=== PATIENT | female | born 1935 | race Caucasian/White ===

== ENCOUNTER 2017-06-23 23:13 | Inpatient (IN) | payer MEDICARE, OTHER ==
[~2017-06-23] VITALS: Ht 165.1 cm; Wt 81.8 kg
[2017-06-23] MEDS ORDERED: MORPHINE 2MG in 2ml NS syringe IM STA (23:36)
[2017-06-23] MEDS ORDERED: ketorolac trometh. 30mg/ml inj. IM ONE (23:45)
[2017-06-23] MEDS ORDERED: TRAM50TA2 PO (23:47)
[2017-06-24 02:08] LABS: BASOPHILS % (AUTO) 0.3 % (0-1); EOSINOPHILS # (AUTO) 0.1 X10'3 (0-0.9); EOSINOPHILS % (AUTO) 1.5 % (0-6); HEMATOCRIT 37.4 % (35.0-45.0); HEMOGLOBIN 13.1 g/dl (12.0-16.0); LYMPHOCYTES # (AUTO) 1.2 X10'3 (1.1-4.8); LYMPHOCYTES % (AUTO) 13.5 % (21-51); MEAN CORPUSCULAR HEMOGLOBIN 34.1 PG (27.0-31.0); MEAN CORPUSCULAR VOLUME 97.5 FL (78-98); MEAN PLATELET VOLUME 7.5 FL (7.4-10.4); MONOCYTES # (AUTO) 0.4 X10'3 (0-0.9); MONOCYTES % (AUTO) 4.1 % (2-12); NEUTROPHILS % (AUTO) 80.6 % (42-75); PLATELET COUNT 216 X10'3 (140-440); RED BLOOD COUNT 3.83 X10'6 (4.20-5.60); RED CELL DISTRIBUTION WIDTH 12.9 % (11.5-14.5); WHITE BLOOD COUNT 8.7 X10'3 (4.5-11.0)
[2017-06-24 02:20] LABS: INR 0.9 INR; PARTIAL THROMBOPLASTIN TIME 27 SECONDS (22-32); PROTHROMBIN TIME 9.6 SECONDS (9.0-12.0)
[2017-06-24] MEDS ORDERED: HYDROcodone/acetaminophen 10/325mg tab PO PRN (02:25)
[2017-06-24] MEDS ORDERED: HYDROcodone/acetaminophen 5mg/325mg tablet PO PRN (02:25)
[2017-06-24] MEDS ORDERED: mag hydrox/Alum hydrox/simeth 30ml oral suspension PO PRN (02:25)
[2017-06-24] MEDS ORDERED: acetaminophen 325mg tablet PO PRN (02:25)
[2017-06-24] MEDS ORDERED: ondansetron/PF 4mg/2ml inj IV PRN (02:25)
[2017-06-24] MEDS ORDERED: magnesium hydroxide 30ml (MOM) UD suspension PO PRN (02:25)
[2017-06-24 02:31] LABS: CREATINE KINASE 91 U/L (26-192); ETHANOL 0.182 GM/DL (0.0-0.010)
[2017-06-24] MEDS ORDERED: haloperidol lactate 5mg/ml inj IM PRN (02:35)
[2017-06-24] MEDS ORDERED: thiamine 100mg/ml 2ml inj. IV ONE (02:35)
[2017-06-24] MEDS ORDERED: dextrose 50%-water 50ml dispensing syringe IV PRN (02:35)
[2017-06-24] MEDS ORDERED: haloperidol 5mg tablet PO PRN (02:35)
[2017-06-24] MEDS: normal saline 1000ml 1,000 ML IV SCH ×2 (02:38→19:01)
[2017-06-24 04:04] LABS: ALANINE AMINOTRANSFERASE 29 U/L (12-78); ALBUMIN 3.6 G/DL (3.4-5.0); ALBUMIN/GLOBULIN RATIO 0.9 (1.1-1.5); ALKALINE PHOSPHATASE 64 IU/L (46-116); ANION GAP 18 (8-16); ASPARTATE AMINO TRANSFERASE 22 U/L (10-37); BILIRUBIN,TOTAL 0.3 MG/DL (0.1-1.0); BLOOD UREA NITROGEN 20 MG/DL (7-18); BUN/CREATININE RATIO 19.6 (6.6-38.0); CALCIUM 8.9 MG/DL (8.5-10.1); CHLORIDE 101 MMOL/L (99-107); CREATININE 1.02 MG/DL (0.40-0.90); GLUCOSE 106 MG/DL (70-104); POTASSIUM 3.5 MMOL/L (3.5-5.1); SODIUM 138 MMOL/L (135-145); TOTAL CARBON DIOXIDE 19.2 MMOL/L (24-32); TOTAL PROTEIN 7.4 G/DL (6.4-8.2); eGFR 52 ML/MIN
[2017-06-24 08:03] LABS: URINE AMPHETAMINE SCREEN NEGATIVE (Neg); URINE BARBITUATE SCREEN NEGATIVE (Neg); URINE BENZODIAZEPINES SCREEN NEGATIVE (Neg); URINE CANNABINOID SCREEN NEGATIVE (Neg); URINE COCAINE SCREEN NEGATIVE (Neg); URINE METHADONE SCREEN NEGATIVE (Neg); URINE OPIATE SCREEN NEGATIVE (Neg); URINE PHENCYCLIDINE SCREEN NEGATIVE (Neg)
[2017-06-24] MEDS ORDERED: MORPHINE 2MG in 2ml NS syringe IV PRN (08:35)
[2017-06-24] MEDS: morphine 4 MG/ML inj SYRINge IV PRN ×5 (08:47→18:38)
[2017-06-24] MEDS ORDERED: morphine 4 MG/ML inj SYRINge IV ONE (09:50)
[2017-06-24] MEDS: LORazepam 2 mg/ml vial IV PRN ×2 (15:05→19:01)
[2017-06-24 17:37] VITALS: BP 143/78
[2017-06-24 18:00] VITALS: BP 138/56
[2017-06-24] MEDS ORDERED: temazepam 15mg capsule PO PRN (21:00)
[2017-06-24 22:00] VITALS: BP 156/75
[2017-06-25] MEDS: HYDROcodone/acetaminophen 10/325mg tab PO PRN ×4 (02:48→20:44)
[2017-06-25] MEDS: morphine 4 MG/ML inj SYRINge IV PRN ×4 (05:53→23:34)
[2017-06-25 06:00] VITALS: BP 117/45
[2017-06-25 09:32] LABS: BASOPHILS % (AUTO) 0.1 % (0-1); EOSINOPHILS # (AUTO) 0.1 X10'3 (0-0.9); EOSINOPHILS % (AUTO) 2.4 % (0-6); HEMOGLOBIN 11.5 g/dl (12.0-16.0); LYMPHOCYTES # (AUTO) 1.1 X10'3 (1.1-4.8); LYMPHOCYTES % (AUTO) 20.3 % (21-51); MEAN CORPUSCULAR HEMOGLOBIN 33.8 PG (27.0-31.0); MEAN CORPUSCULAR HGB CONC 34.9 % (33.0-36.5); MEAN CORPUSCULAR VOLUME 96.8 FL (78-98); MEAN PLATELET VOLUME 7.5 FL (7.4-10.4); MONOCYTES # (AUTO) 0.4 X10'3 (0-0.9); MONOCYTES % (AUTO) 7.4 % (2-12); NEUTROPHILS # (AUTO) 3.8 X10'3 (1.8-7.7); NEUTROPHILS % (AUTO) 69.8 % (42-75); PLATELET COUNT 219 X10'3 (140-440); RED BLOOD COUNT 3.41 X10'6 (4.20-5.60); WHITE BLOOD COUNT 5.4 X10'3 (4.5-11.0)
[2017-06-25 09:42] LABS: ALBUMIN 3.1 G/DL (3.4-5.0); ANION GAP 9 (8-16); BLOOD UREA NITROGEN 16 MG/DL (7-18); BUN/CREATININE RATIO 17.2 (6.6-38.0); CALCIUM 8.4 MG/DL (8.5-10.1); CHLORIDE 102 MMOL/L (99-107); CREATININE 0.93 MG/DL (0.40-0.90); GLUCOSE 100 MG/DL (70-104); SODIUM 136 MMOL/L (135-145); TOTAL CARBON DIOXIDE 25.3 MMOL/L (24-32); eGFR 58 ML/MIN
[2017-06-25 10:00] VITALS: BP 143/71
[2017-06-25] MEDS: pantoprazole 40 MG vial IV SCH (12:29)
[2017-06-25] MEDS: enoxaparin 40mg/0.4ml syringe SUBCUT SCH (16:25)
[2017-06-25 19:00] VITALS: BP 160/74
[2017-06-25 22:00] VITALS: BP 148/64
[2017-06-26] MEDS ORDERED: DORZ10DR18 RIGHTEYE (00:11)
[2017-06-26] MEDS ORDERED: BIMA2.5D OP (00:22)
[2017-06-26] MEDS: HYDROcodone/acetaminophen 10/325mg tab PO PRN ×5 (00:31→21:50)
[2017-06-26] MEDS ORDERED: LORazepam 1 MG tablet PO PRN (02:35)
[2017-06-26] MEDS ORDERED: LORazepam 2 mg/ml vial IV PRN (02:35)
[2017-06-26] MEDS: morphine 4 MG/ML inj SYRINge IV PRN ×3 (03:55→16:58)
[2017-06-26 06:00] VITALS: BP 142/61
[2017-06-26] MEDS: pantoprazole 40 MG vial IV SCH (08:00)
[2017-06-26] MEDS: enoxaparin 40mg/0.4ml syringe SUBCUT SCH (08:00)
[2017-06-26 10:00] VITALS: BP 150/73
[2017-06-26 18:00] VITALS: BP 182/77
[2017-06-26 22:00] VITALS: BP 167/77
[2017-06-27] MEDS: HYDROcodone/acetaminophen 10/325mg tab PO PRN ×3 (05:16→13:08)
[2017-06-27 06:00] VITALS: BP 159/73
[2017-06-27] MEDS: enoxaparin 40mg/0.4ml syringe SUBCUT SCH (08:50)
[2017-06-27] MEDS: pantoprazole 40 MG vial IV SCH (08:50)
[2017-06-27 10:00] VITALS: BP 124/55
[2017-06-28] MEDS ORDERED: LORazepam 1 MG tablet PO PRN (02:35)
[2017-06-28] MEDS ORDERED: LORazepam 2 mg/ml vial IV PRN (02:35)
== END 2017-06-27 14:07 | DRG 543 ==
LOC: ER 23:14 → ED HOLD 06-24 02:24 → ORTHO 4S 06-24 17:11
PROVIDERS: ADMIT Internal Medicine; ATTEND Internal Medicine
PROC: 2W3LX1Z Immobilization of Right Lower Extremity using Splint (ICD-10-PCS; principal; 2017-06-24)
DX: M80.871A Other osteoporosis with current pathological fracture, right ankle and foot, initial encounter for fracture (principal); D62 Acute posthemorrhagic anemia; I50.9 Heart failure, unspecified; E86.0 Dehydration; M80.861A Other osteoporosis with current pathological fracture, right lower leg, initial encounter for fracture; W10.8XXA Fall (on) (from) other stairs and steps, initial encounter; F10.129 Alcohol abuse with intoxication, unspecified; Z96.651 Presence of right artificial knee joint; Z60.2 Problems related to living alone; N28.9 Disorder of kidney and ureter, unspecified; Y90.6 Blood alcohol level of 120-199 mg/100 ml; Z90.49 Acquired absence of other specified parts of digestive tract; Z90.5 Acquired absence of kidney; Z88.6 Allergy status to analgesic agent; Z85.038 Personal history of other malignant neoplasm of large intestine; Z85.528 Personal history of other malignant neoplasm of kidney; Y93.89 Activity, other specified; Y92.89 Other specified places as the place of occurrence of the external cause; Y99.8 Other external cause status
CPT/HCPCS: 36415; 71045; 73501; 73560; 73590; 73600; 80048; 80053; 80305; 80320; 82550; 83880; 84484; 85025; 85610; 85730; 87070; 93005; 96372; 97110; 97162; 97530; 99285; A6449; C9113; J1650; J1885; J2060; J2270; J2405; J3411; J7030

== ENCOUNTER 2017-07-08 05:32 | Inpatient (IN) | payer MEDICARE, OTHER ==
[~2017-07-08] VITALS: Ht 165.1 cm; Wt 81.0 kg
[~2017-07-08 05:32] MED LIST: BIMA2.5D OP; DORZ10DR18 RIGHTEYE; TRAM50TA2 PO
[2017-07-08 06:17] LABS: ALANINE AMINOTRANSFERASE 36 U/L (12-78); ALBUMIN 3.3 G/DL (3.4-5.0); ALBUMIN/GLOBULIN RATIO 0.9 (1.1-1.5); ALKALINE PHOSPHATASE 63 IU/L (46-116); ANION GAP 12 (8-16); ASPARTATE AMINO TRANSFERASE 17 U/L (10-37); BILIRUBIN,TOTAL 0.5 MG/DL (0.1-1.0); BLOOD UREA NITROGEN 13 MG/DL (7-18); BUN/CREATININE RATIO 13.4 (6.6-38.0); CALCIUM 9.4 MG/DL (8.5-10.1); CHLORIDE 105 MMOL/L (99-107); CREATININE 0.97 MG/DL (0.40-0.90); GLUCOSE 96 MG/DL (70-104); POTASSIUM 3.7 MMOL/L (3.5-5.1); SODIUM 141 MMOL/L (135-145); TOTAL CARBON DIOXIDE 24.3 MMOL/L (24-32); eGFR 55 ML/MIN
[2017-07-08 06:23] LABS: BASOPHILS % (AUTO) 0 % (0-1); EOSINOPHILS # (AUTO) 0.1 X10'3 (0-0.9); EOSINOPHILS % (AUTO) 3.6 % (0-6); HEMATOCRIT 32.1 % (35.0-45.0); HEMOGLOBIN 11.3 g/dl (12.0-16.0); LYMPHOCYTES # (AUTO) 0.9 X10'3 (1.1-4.8); LYMPHOCYTES % (AUTO) 24.1 % (21-51); MEAN CORPUSCULAR HEMOGLOBIN 33.8 PG (27.0-31.0); MEAN CORPUSCULAR HGB CONC 35.1 % (33.0-36.5); MEAN CORPUSCULAR VOLUME 96.3 FL (78-98); MEAN PLATELET VOLUME 7.3 FL (7.4-10.4); MONOCYTES # (AUTO) 0.3 X10'3 (0-0.9); MONOCYTES % (AUTO) 8.6 % (2-12); NEUTROPHILS # (AUTO) 2.4 X10'3 (1.8-7.7); NEUTROPHILS % (AUTO) 63.7 % (42-75); PLATELET COUNT 441 X10'3 (140-440); RED BLOOD COUNT 3.33 X10'6 (4.20-5.60); RED CELL DISTRIBUTION WIDTH 13.2 % (11.5-14.5); WHITE BLOOD COUNT 3.8 X10'3 (4.5-11.0)
[2017-07-08] MEDS ORDERED: thiamine 100mg tablet PO ONE (06:55)
[2017-07-08] MEDS ORDERED: folic acid 1mg tablet PO ONE (06:55)
[2017-07-08] MEDS ORDERED: acetaminophen 325mg tablet PO PRN (07:45)
[2017-07-08] MEDS ORDERED: magnesium hydroxide 30ml (MOM) UD suspension PO PRN (07:45)
[2017-07-08] MEDS ORDERED: mag hydrox/Alum hydrox/simeth 30ml oral suspension PO PRN (07:45)
[2017-07-08] MEDS ORDERED: ondansetron/PF 4mg/2ml inj IV PRN (07:45)
[2017-07-08] MEDS ORDERED: nitroGLYCERIN 0.4mg/hour patch TD ONE (07:50)
[2017-07-08] MEDS ORDERED: aspirin 81mg tab.chew PO ONE (07:50)
[2017-07-08] MEDS ORDERED: metoprolol tartrate 1mg/ml inj IV PRN (07:55)
[2017-07-08] MEDS ORDERED: aminophylline 250mg/10ml inj. IV PRN (07:55)
[2017-07-08] MEDS ORDERED: nitroGLYCERIN 0.4mg SUBLingual tab SL PRN (07:55)
[2017-07-08] MEDS ORDERED: regadenoson 0.4mg/5ml syringe IV ONE (07:55)
[2017-07-08] MEDS: aspirin 81mg tablet.DR PO SCH (08:00)
[2017-07-08] MEDS: enoxaparin 40mg/0.4ml syringe SQ SCH (08:00)
[2017-07-08] MEDS ORDERED: dorzolamide/timolol (Cosopt) ophthalmic drops 10ml bottle RIGHTEYE SCH (08:00)
[2017-07-08] MEDS: lisinopril 10 MG tablet PO SCH (09:21)
[2017-07-08] MEDS: LORazepam 1 MG tablet PO PRN ×2 (11:16→20:38)
[2017-07-08 11:44] VITALS: BP 166/66
[2017-07-08 19:00] VITALS: BP 110/55
[2017-07-08] MEDS: dorzolamide 2% ophthalmic drops 10ml RIGHTEYE SCH (20:00)
[2017-07-08] MEDS: timolol 0.5% ophthalmic solution 5ml bottle RIGHTEYE SCH (20:00)
[2017-07-08] MEDS: traMADol 50MG tablet PO PRN (20:38)
[2017-07-08] MEDS: latanoprost 0.005% 2.5ml ophthalmic drops EACHEYE SCH (20:39)
[2017-07-09] VITALS (12 sets, daily range): BP systolic 133–179; BP diastolic 60–81
[2017-07-09 05:35] LABS: BASOPHILS % (AUTO) 0.2 % (0-1); EOSINOPHILS # (AUTO) 0.1 X10'3 (0-0.9); EOSINOPHILS % (AUTO) 3.1 % (0-6); HEMATOCRIT 29.7 % (35.0-45.0); HEMOGLOBIN 10.3 g/dl (12.0-16.0); MEAN CORPUSCULAR HEMOGLOBIN 33.7 PG (27.0-31.0); MEAN CORPUSCULAR HGB CONC 34.8 % (33.0-36.5); MEAN CORPUSCULAR VOLUME 96.6 FL (78-98); MEAN PLATELET VOLUME 7.4 FL (7.4-10.4); MONOCYTES # (AUTO) 0.4 X10'3 (0-0.9); MONOCYTES % (AUTO) 9.4 % (2-12); NEUTROPHILS # (AUTO) 2.6 X10'3 (1.8-7.7); NEUTROPHILS % (AUTO) 63.3 % (42-75); PLATELET COUNT 412 X10'3 (140-440); RED BLOOD COUNT 3.07 X10'6 (4.20-5.60); RED CELL DISTRIBUTION WIDTH 12.4 % (11.5-14.5); WHITE BLOOD COUNT 4.1 X10'3 (4.5-11.0)
[2017-07-09 06:01] LABS: ALBUMIN 3.1 G/DL (3.4-5.0); ANION GAP 11 (8-16); BLOOD UREA NITROGEN 14 MG/DL (7-18); BUN/CREATININE RATIO 14.7 (6.6-38.0); CHLORIDE 106 MMOL/L (99-107); CHOL/HDL RATIO 3.8 (0.00-4.99); CHOLESTEROL 160 MG/DL (0-200); CREATININE 0.95 MG/DL (0.40-0.90); GLUCOSE 93 MG/DL (70-104); HDL CHOLESTEROL 42 MG/DL (35-60); LDL CHOLESTEROL 96 MG/DL (50-100); POTASSIUM 3.5 MMOL/L (3.5-5.1); SODIUM 143 MMOL/L (135-145); TOTAL CARBON DIOXIDE 26.1 MMOL/L (24-32); TRIGLYCERIDES 140 MG/DL (20-135); eGFR 56 ML/MIN
[2017-07-09] MEDS: enoxaparin 40mg/0.4ml syringe SQ SCH (07:20)
[2017-07-09] MEDS: aspirin 81mg tablet.DR PO SCH (07:20)
[2017-07-09] MEDS: LORazepam 1 MG tablet PO PRN ×2 (07:32→20:05)
[2017-07-09] MEDS: lisinopril 10 MG tablet PO SCH (07:32)
[2017-07-09] MEDS: timolol 0.5% ophthalmic solution 5ml bottle RIGHTEYE SCH ×2 (08:00→20:00)
[2017-07-09] MEDS: dorzolamide 2% ophthalmic drops 10ml RIGHTEYE SCH ×2 (08:00→20:00)
[2017-07-09] MEDS: traMADol 50MG tablet PO PRN ×2 (08:56→20:05)
[2017-07-09] MEDS ORDERED: aminophylline inj. 0 ML IV ONE (09:19)
[2017-07-09] MEDS ORDERED: regadenoson 0.4mg/5ml syringe IV ONE (09:19)
[2017-07-09] MEDS: metoprolol tartrate 12.5mg (1/2 tablet) PO SCH (20:05)
[2017-07-09] MEDS: latanoprost 0.005% 2.5ml ophthalmic drops EACHEYE SCH (21:00)
[2017-07-10 06:08] LABS: BASOPHILS % (AUTO) 0.3 % (0-1); EOSINOPHILS # (AUTO) 0.1 X10'3 (0-0.9); EOSINOPHILS % (AUTO) 4.1 % (0-6); HEMATOCRIT 30.8 % (35.0-45.0); HEMOGLOBIN 10.7 g/dl (12.0-16.0); LYMPHOCYTES % (AUTO) 27.1 % (21-51); MEAN CORPUSCULAR HEMOGLOBIN 33.1 PG (27.0-31.0); MEAN CORPUSCULAR HGB CONC 34.7 % (33.0-36.5); MEAN CORPUSCULAR VOLUME 95.4 FL (78-98); MEAN PLATELET VOLUME 7.2 FL (7.4-10.4); MONOCYTES # (AUTO) 0.4 X10'3 (0-0.9); MONOCYTES % (AUTO) 9.7 % (2-12); NEUTROPHILS # (AUTO) 2.1 X10'3 (1.8-7.7); NEUTROPHILS % (AUTO) 58.8 % (42-75); PLATELET COUNT 419 X10'3 (140-440); RED BLOOD COUNT 3.23 X10'6 (4.20-5.60); RED CELL DISTRIBUTION WIDTH 13.2 % (11.5-14.5); WHITE BLOOD COUNT 3.6 X10'3 (4.5-11.0)
[2017-07-10 06:17] LABS: ALBUMIN 3.1 G/DL (3.4-5.0); ANION GAP 11 (8-16); BLOOD UREA NITROGEN 11 MG/DL (7-18); BUN/CREATININE RATIO 12.1 (6.6-38.0); CHLORIDE 107 MMOL/L (99-107); CREATININE 0.91 MG/DL (0.40-0.90); GLUCOSE 88 MG/DL (70-104); POTASSIUM 3.4 MMOL/L (3.5-5.1); SODIUM 143 MMOL/L (135-145); TOTAL CARBON DIOXIDE 25.4 MMOL/L (24-32); eGFR 59 ML/MIN
[2017-07-10 06:54] VITALS: BP 181/63
[2017-07-10] MEDS: timolol 0.5% ophthalmic solution 5ml bottle RIGHTEYE SCH ×2 (08:00→19:23)
[2017-07-10] MEDS: dorzolamide 2% ophthalmic drops 10ml RIGHTEYE SCH ×2 (08:00→20:00)
[2017-07-10] MEDS: lisinopril 10 MG tablet PO SCH (08:11)
[2017-07-10] MEDS: metoprolol tartrate 12.5mg (1/2 tablet) PO SCH ×2 (08:11→19:23)
[2017-07-10] MEDS: enoxaparin 40mg/0.4ml syringe SQ SCH (08:11)
[2017-07-10] MEDS: aspirin 81mg tablet.DR PO SCH (08:11)
[2017-07-10] MEDS: furosemide 40 MG/4 ML oral solution UD cup PO SCH (08:12)
[2017-07-10 12:21] VITALS: BP 178/76
[2017-07-10] MEDS: traMADol 50MG tablet PO PRN ×2 (13:59→23:25)
[2017-07-10] MEDS ORDERED: potassium Cl 40MEQ/NS 500ml 500 ML IV PRN ×2 (14:40)
[2017-07-10] MEDS ORDERED: potassium Cl 20 mEq SR tablet PO PRN (14:40)
[2017-07-10] MEDS: morphine 4 MG/ML inj SYRINge IV PRN ×4 (17:11→23:26)
[2017-07-10 19:00] VITALS: BP 148/81
[2017-07-10] MEDS: potassium Cl 20 mEq SR tablet PO PRN ×2 (19:23→23:25)
[2017-07-10] MEDS: latanoprost 0.005% 2.5ml ophthalmic drops EACHEYE SCH (19:26)
[2017-07-10] MEDS: normal saline 1000ml 1,000 ML IV SCH (21:34)
[2017-07-10] MEDS: LORazepam 1 MG tablet PO PRN (23:25)
[2017-07-10 23:56] VITALS: BP 149/71
[2017-07-11] VITALS (11 sets, daily range): BP systolic 128–173; BP diastolic 64–87
[2017-07-11] MEDS: morphine 4 MG/ML inj SYRINge IV PRN ×5 (02:34→20:57)
[2017-07-11] MEDS: potassium Cl 20 mEq SR tablet PO PRN (04:21)
[2017-07-11 06:18] LABS: ALBUMIN 3.1 G/DL (3.4-5.0); ANION GAP 11 (8-16); BLOOD UREA NITROGEN 13 MG/DL (7-18); BUN/CREATININE RATIO 13.1 (6.6-38.0); CALCIUM 8.7 MG/DL (8.5-10.1); CHLORIDE 106 MMOL/L (99-107); CREATININE 0.99 MG/DL (0.40-0.90); GLUCOSE 89 MG/DL (70-104); MAGNESIUM 1.8 MG/DL (1.5-2.4); POTASSIUM 3.9 MMOL/L (3.5-5.1); SODIUM 141 MMOL/L (135-145); TOTAL CARBON DIOXIDE 23.8 MMOL/L (24-32); eGFR 54 ML/MIN
[2017-07-11 07:01] LABS: BASOPHILS % (AUTO) 0.3 % (0-1); EOSINOPHILS # (AUTO) 0.2 X10'3 (0-0.9); EOSINOPHILS % (AUTO) 3.6 % (0-6); HEMATOCRIT 33.2 % (35.0-45.0); HEMOGLOBIN 11.6 g/dl (12.0-16.0); LYMPHOCYTES # (AUTO) 1.4 X10'3 (1.1-4.8); LYMPHOCYTES % (AUTO) 28.2 % (21-51); MEAN CORPUSCULAR HEMOGLOBIN 33.5 PG (27.0-31.0); MEAN CORPUSCULAR VOLUME 95.9 FL (78-98); MEAN PLATELET VOLUME 7.8 FL (7.4-10.4); MONOCYTES # (AUTO) 0.4 X10'3 (0-0.9); NEUTROPHILS # (AUTO) 3.1 X10'3 (1.8-7.7); NEUTROPHILS % (AUTO) 59.9 % (42-75); PLATELET COUNT 491 X10'3 (140-440); RED BLOOD COUNT 3.46 X10'6 (4.20-5.60); RED CELL DISTRIBUTION WIDTH 12.3 % (11.5-14.5); WHITE BLOOD COUNT 5.1 X10'3 (4.5-11.0)
[2017-07-11] MEDS: aspirin 81mg tablet.DR PO SCH (07:21)
[2017-07-11] MEDS: furosemide 40 MG/4 ML oral solution UD cup PO SCH (07:22)
[2017-07-11] MEDS: metoprolol tartrate 12.5mg (1/2 tablet) PO SCH ×2 (07:22→20:56)
[2017-07-11] MEDS: lisinopril 10 MG tablet PO SCH (07:23)
[2017-07-11] MEDS: timolol 0.5% ophthalmic solution 5ml bottle RIGHTEYE SCH ×2 (07:23→20:56)
[2017-07-11] MEDS: dorzolamide 2% ophthalmic drops 10ml RIGHTEYE SCH ×2 (07:24→20:00)
[2017-07-11] MEDS: LORazepam 1 MG tablet PO PRN ×3 (07:24→22:43)
[2017-07-11] MEDS: enoxaparin 40mg/0.4ml syringe SQ SCH (07:29)
[2017-07-11] MEDS ORDERED: midazolam 2 mg/2 ml injection ONE (08:44)
[2017-07-11] MEDS ORDERED: fentaNYL/PF 50MCG/1 ML 2ML syringe ONE (08:44)
[2017-07-11] MEDS ORDERED: iohexol 350 MG/ML 50ML vial IV ONE (09:13)
[2017-07-11] MEDS ORDERED: normal saline 1000ml 1,000 ML IV SCH (10:00)
[2017-07-11] MEDS ORDERED: ondansetron/PF 4mg/2ml inj IV PRN (10:00)
[2017-07-11] MEDS ORDERED: lisinopril 10 MG tablet PO SCH (10:02)
[2017-07-11] MEDS ORDERED: OXAZEpam 15mg capsule PO PRN (10:05)
[2017-07-11] MEDS ORDERED: proCHLORperazine 10 MG/2 ml inj IV PRN (10:05)
[2017-07-11] MEDS ORDERED: nitroGLYCERIN 0.4mg SUBLingual tab SL PRN (10:05)
[2017-07-11] MEDS ORDERED: HYDROcodone/acetaminophen 5mg/325mg tablet PO PRN (10:05)
[2017-07-11] MEDS: normal saline 1000ml 1,000 ML IV SCH (11:11)
[2017-07-11] MEDS: HYDROcodone/acetaminophen 10/325mg tab PO PRN ×2 (16:46→22:43)
[2017-07-11] MEDS: latanoprost 0.005% 2.5ml ophthalmic drops EACHEYE SCH (20:57)
[2017-07-11] MEDS: traMADol 50MG tablet PO PRN (23:11)
[2017-07-12] VITALS: BP 133/60
[2017-07-12] MEDS: normal saline 1000ml 1,000 ML IV SCH (00:05)
[2017-07-12] MEDS: morphine 4 MG/ML inj SYRINge IV PRN (00:36)
[2017-07-12 06:03] LABS: BASOPHILS % (AUTO) 0.4 % (0-1); EOSINOPHILS # (AUTO) 0.2 X10'3 (0-0.9); EOSINOPHILS % (AUTO) 4.4 % (0-6); HEMATOCRIT 32.3 % (35.0-45.0); HEMOGLOBIN 11.2 g/dl (12.0-16.0); LYMPHOCYTES % (AUTO) 23.5 % (21-51); MEAN CORPUSCULAR HEMOGLOBIN 33.8 PG (27.0-31.0); MEAN CORPUSCULAR HGB CONC 34.7 % (33.0-36.5); MEAN CORPUSCULAR VOLUME 97.2 FL (78-98); MEAN PLATELET VOLUME 7.4 FL (7.4-10.4); MONOCYTES # (AUTO) 0.4 X10'3 (0-0.9); MONOCYTES % (AUTO) 9.4 % (2-12); NEUTROPHILS # (AUTO) 2.7 X10'3 (1.8-7.7); NEUTROPHILS % (AUTO) 62.3 % (42-75); PLATELET COUNT 410 X10'3 (140-440); RED BLOOD COUNT 3.33 X10'6 (4.20-5.60); RED CELL DISTRIBUTION WIDTH 12.8 % (11.5-14.5); WHITE BLOOD COUNT 4.4 X10'3 (4.5-11.0)
[2017-07-12 06:37] LABS: ANION GAP 11 (8-16); BLOOD UREA NITROGEN 12 MG/DL (7-18); CALCIUM 8.8 MG/DL (8.5-10.1); CHLORIDE 105 MMOL/L (99-107); CREATININE 0.92 MG/DL (0.40-0.90); GLUCOSE 88 MG/DL (70-104); MAGNESIUM 1.7 MG/DL (1.5-2.4); POTASSIUM 3.8 MMOL/L (3.5-5.1); SODIUM 141 MMOL/L (135-145); TOTAL CARBON DIOXIDE 25.2 MMOL/L (24-32); eGFR 58 ML/MIN
[2017-07-12] MEDS: furosemide 40 MG/4 ML oral solution UD cup PO SCH (09:15)
[2017-07-12] MEDS: aspirin 81mg tablet.DR PO SCH (09:15)
[2017-07-12] MEDS: metoprolol tartrate 12.5mg (1/2 tablet) PO SCH (09:15)
[2017-07-12] MEDS: timolol 0.5% ophthalmic solution 5ml bottle RIGHTEYE SCH (09:16)
[2017-07-12] MEDS: dorzolamide 2% ophthalmic drops 10ml RIGHTEYE SCH (09:16)
[2017-07-12] MEDS: LORazepam 1 MG tablet PO PRN (09:17)
[2017-07-12] MEDS: enoxaparin 40mg/0.4ml syringe SQ SCH (09:20)
[2017-07-12 09:25] VITALS: BP 139/65
[2017-07-12 11:31] VITALS: BP 140/98
[2017-07-12] MEDS: HYDROcodone/acetaminophen 10/325mg tab PO PRN (12:20)
== END 2017-07-12 14:00 | DRG 286 ==
LOC: ER 05:33 → ED HOLD 07:44 → MED 3N 09:23
PROVIDERS: ADMIT Hospitalist; ATTEND Family Medicine
PROC: 4A023N7 Measurement of Cardiac Sampling and Pressure, Left Heart, Percutaneous Approach (ICD-10-PCS; principal; 2017-07-11)
PROC: B2111ZZ Fluoroscopy of Multiple Coronary Arteries using Low Osmolar Contrast (ICD-10-PCS; 2017-07-11)
PROC: B2151ZZ Fluoroscopy of Left Heart using Low Osmolar Contrast (ICD-10-PCS; 2017-07-11)
PROC: B3101ZZ Fluoroscopy of Thoracic Aorta using Low Osmolar Contrast (ICD-10-PCS; 2017-07-11)
PROC: 4A02XM4 Measurement of Cardiac Total Activity, External Approach (ICD-10-PCS; 2017-07-12)
PROC: 3E073KZ Introduction of Other Diagnostic Substance into Coronary Artery, Percutaneous Approach (ICD-10-PCS; 2017-07-12)
DX: R07.89 Other chest pain (principal); I50.31 Acute diastolic (congestive) heart failure; I35.1 Nonrheumatic aortic (valve) insufficiency; I11.0 Hypertensive heart disease with heart failure; G89.29 Other chronic pain; M81.0 Age-related osteoporosis without current pathological fracture; Z60.2 Problems related to living alone; Z90.5 Acquired absence of kidney; Z90.49 Acquired absence of other specified parts of digestive tract; S82.831D Other fracture of upper and lower end of right fibula, subsequent encounter for closed fracture with routine healing; Z88.5 Allergy status to narcotic agent; Z79.899 Other long term (current) drug therapy; Z85.528 Personal history of other malignant neoplasm of kidney; Z85.038 Personal history of other malignant neoplasm of large intestine; Z82.49 Family history of ischemic heart disease and other diseases of the circulatory system
CPT/HCPCS: 36415; 70450; 71045; 78452; 80048; 80053; 80061; 83735; 83880; 84484; 85025; 87070; 93005; 93017; 93306; 93458; 93567; 97116; 97161; 97535; 99152; 99153; 99285; A4620; A6257; A6449; A9500; C1760; C1769; J0280; J1644; J1650; J2001; J2250; J2270; J2785; J3010; J7030; Q9967

== ENCOUNTER 2017-07-11 08:00 | Outpatient (CLI) | payer MEDICARE, OTHER ==
[~2017-07-11 08:00] MED LIST changes: +K and/or MAG REPLACEMENT MC SCH; +dorzolamide 2% ophthalmic drops 10ml RIGHTEYE SCH; +non-formulary drug (Bimatoprost (Lumigan) 2.5 ML) OP SCH; +potassium Cl 20 mEq SR tablet PO PRN; +potassium Cl 40MEQ/NS 500ml 500 ML IV PRN; +timolol 0.5% ophthalmic solution 5ml bottle RIGHTEYE SCH; +traMADol 50MG tablet PO PRN
[2017-07-11] MEDS ORDERED: iohexol 350 MG/ML 50ML vial IV ONE (08:19)
[2017-07-11] MEDS ORDERED: iohexol 350MG/ML 100ml bottle IV ONE (08:19)
[2017-07-11] MEDS ORDERED: LIDOcaine 1%/PF (10mg/ml) 5ml vial ONE (08:19)
== END 2017-07-11 11:10 | disposition home or self-care (01) ==
LOC: ORTHO 08:00
PROVIDERS: ATTEND Nurse Practitioner Family
DX: I25.10 Atherosclerotic heart disease of native coronary artery without angina pectoris (principal)
CPT/HCPCS: 93458; 93567; A6257; C1760; C1769; J1644; J2001; Q9967; 99152; 99153; A4620

== ENCOUNTER 2017-07-27 11:08 | Outpatient (CLI) | payer MEDICARE, OTHER ==
[~2017-07-27 11:08] MED LIST changes: -K and/or MAG REPLACEMENT MC SCH; -TRAM50TA2 PO; -dorzolamide 2% ophthalmic drops 10ml RIGHTEYE SCH; -non-formulary drug (Bimatoprost (Lumigan) 2.5 ML) OP SCH; -potassium Cl 20 mEq SR tablet PO PRN; -potassium Cl 40MEQ/NS 500ml 500 ML IV PRN; -timolol 0.5% ophthalmic solution 5ml bottle RIGHTEYE SCH; -traMADol 50MG tablet PO PRN
[2017-07-27 11:10] VITALS: BP 116/51
== END 2017-07-27 12:18 ==
LOC: ORTHO 11:08
PROVIDERS: ATTEND Nurse Practitioner Family
DX: S82.841A Displaced bimalleolar fracture of right lower leg, initial encounter for closed fracture (principal); S82.831A Other fracture of upper and lower end of right fibula, initial encounter for closed fracture; G62.9 Polyneuropathy, unspecified; M81.0 Age-related osteoporosis without current pathological fracture; Z98.890 Other specified postprocedural states; Z60.2 Problems related to living alone; Z88.5 Allergy status to narcotic agent; Z79.82 Long term (current) use of aspirin; W19.XXXA Unspecified fall, initial encounter; Y93.89 Activity, other specified; Y92.89 Other specified places as the place of occurrence of the external cause; Y99.8 Other external cause status
CPT/HCPCS: 29515; 73590; 99213

== ENCOUNTER 2017-08-17 11:23 | Outpatient (CLI) | payer MEDICARE, OTHER | END 2017-08-17 12:23 | LOC: ORTHO 11:23 | PROVIDERS: ATTEND Nurse Practitioner Family | DX: S82.841G Displaced bimalleolar fracture of right lower leg, subsequent encounter for closed fracture with delayed healing (principal); S82.44 Spiral fracture of shaft of fibula; G62.9 Polyneuropathy, unspecified; M81.0 Age-related osteoporosis without current pathological fracture; Z88.5 Allergy status to narcotic agent; Z60.2 Problems related to living alone; W19.XXXD Unspecified fall, subsequent encounter | CPT/HCPCS: 73560; 73590; 73610; 99213 ==

== ENCOUNTER 2017-09-14 11:32 | Outpatient (CLI) | payer MEDICARE, OTHER | END 2017-09-14 12:02 | disposition home or self-care (01) | LOC: ORTHO 11:32 | PROVIDERS: ATTEND Nurse Practitioner Family | DX: S82.831D Other fracture of upper and lower end of right fibula, subsequent encounter for closed fracture with routine healing (principal); S82.841D Displaced bimalleolar fracture of right lower leg, subsequent encounter for closed fracture with routine healing; I10 Essential (primary) hypertension; F10.10 Alcohol abuse, uncomplicated; X58.XXXD Exposure to other specified factors, subsequent encounter | CPT/HCPCS: 73560; 73610; 99213 ==

== ENCOUNTER 2017-09-22 15:27 | Inpatient (IN) | payer MEDICARE, OTHER ==
[~2017-09-22] VITALS: Ht 167.6 cm; Wt 81.8 kg
[2017-09-22] MEDS ORDERED: ondansetron/PF 4mg/2ml inj IV ONE ×3 (16:05→19:05)
[2017-09-22] MEDS ORDERED: morphine 4 MG/ML inj SYRINge IV ONE ×2 (16:05→19:05)
[2017-09-22] MEDS ORDERED: normal saline 1000ML IV soln IVB ONE (16:05)
[2017-09-22 16:40] LABS: BASOPHILS % (AUTO) 0.4 % (0-1); EOSINOPHILS % (AUTO) 0 % (0-6); HEMATOCRIT 37.7 % (35.0-45.0); LYMPHOCYTES # (AUTO) 1.1 X10'3 (1.1-4.8); LYMPHOCYTES % (AUTO) 16.9 % (21-51); MEAN CORPUSCULAR HGB CONC 34.6 % (33.0-36.5); MEAN CORPUSCULAR VOLUME 95.3 FL (78-98); MEAN PLATELET VOLUME 7.6 FL (7.4-10.4); MONOCYTES # (AUTO) 0.2 X10'3 (0-0.9); MONOCYTES % (AUTO) 3.6 % (2-12); NEUTROPHILS # (AUTO) 5.2 X10'3 (1.8-7.7); NEUTROPHILS % (AUTO) 79.1 % (42-75); PLATELET COUNT 285 X10'3 (140-440); RED BLOOD COUNT 3.96 X10'6 (4.20-5.60); RED CELL DISTRIBUTION WIDTH 13.3 % (11.5-14.5); WHITE BLOOD COUNT 6.5 X10'3 (4.5-11.0)
[2017-09-22 16:49] LABS: PROTHROMBIN TIME 10.6 SECONDS (9.0-12.0)
[2017-09-22 16:55] LABS: ALANINE AMINOTRANSFERASE 36 U/L (12-78); ALBUMIN/GLOBULIN RATIO 1.1 (1.1-1.5); ALKALINE PHOSPHATASE 94 IU/L (46-116); ANION GAP 12 (8-16); ASPARTATE AMINO TRANSFERASE 21 U/L (10-37); BILIRUBIN,TOTAL 0.4 MG/DL (0.1-1.0); BLOOD UREA NITROGEN 9 MG/DL (7-18); BUN/CREATININE RATIO 9.2 (6.6-38.0); CALCIUM 9.3 MG/DL (8.5-10.1); CHLORIDE 103 MMOL/L (99-107); CREATININE 0.98 MG/DL (0.40-0.90); GLUCOSE 133 MG/DL (70-104); LIPASE 329 U/L (73-393); POTASSIUM 3.2 MMOL/L (3.5-5.1); SODIUM 143 MMOL/L (135-145); TOTAL CARBON DIOXIDE 28.4 MMOL/L (24-32); TOTAL PROTEIN 7.8 G/DL (6.4-8.2); eGFR 54 ML/MIN
[2017-09-22] MEDS ORDERED: fentaNYL/PF 50MCG/1 ML 2ML syringe IV ONE (17:35)
[2017-09-22] MEDS ORDERED: PROC25SU31 RC (21:13)
[2017-09-22] MEDS ORDERED: ZOLP10TA5 PO (21:13)
[2017-09-22] MEDS ORDERED: PANT-47 PO (21:13)
[2017-09-22] MEDS ORDERED: METO-292 PO (21:13)
[2017-09-22] MEDS ORDERED: NYSPWD TP (21:13)
[2017-09-22] MEDS ORDERED: SERT25TA PO (21:14)
[2017-09-22] MEDS ORDERED: acetaminophen 325mg tablet PO PRN (22:05)
[2017-09-22] MEDS ORDERED: mag hydrox/Alum hydrox/simeth 30ml oral suspension PO PRN (22:05)
[2017-09-22] MEDS ORDERED: bisacodyl 10mg suppository rectal RC PRN (22:05)
[2017-09-22] MEDS ORDERED: temazepam 15mg capsule PO ONE (22:05)
[2017-09-22] MEDS ORDERED: magnesium hydroxide 30ml (MOM) UD suspension PO PRN (22:05)
[2017-09-22] MEDS: normal saline 1000ml 1,000 ML IV SCH (23:30)
[2017-09-23 01:05] VITALS: BP 116/60
[2017-09-23] MEDS ORDERED: dicyclomine 10 MG capsule PO PRN (01:05)
[2017-09-23] MEDS ORDERED: potassium Cl oral solution 20 MEQ/15 ML PO ONE (01:05)
[2017-09-23 02:07] LABS: CLARITY,URINE CLOUDY (Clear); COLOR,URINE YELLOW (Yellow); GLUCOSE, URINE NEGATIVE (Neg); KETONES,URINE NEGATIVE (Neg); LEUKOCYTE ESTERASE ,URINE MODERATE (Neg); NITRITES, URINE NEGATIVE (Neg); OCCULT BLOOD,URINE TRACE-INTACT (Neg); PH,URINE 5.5 (4.8-8.0); PROTEIN,URINE TRACE mg/dl (Neg); UROBILINOGEN,URINE 0.2 E.U/dL (0.2-1.0)
[2017-09-23 02:09] LABS: UA COLLECTION TYPE CLN CATCH MIDSTREAM
[2017-09-23] MEDS ORDERED: potassium Cl 40MEQ/NS 500ml 500 ML IV PRN ×2 (02:50)
[2017-09-23] MEDS ORDERED: potassium Cl 20 mEq SR tablet PO PRN ×2 (02:50)
[2017-09-23 03:01] LABS: BACTERIA,URINE 4+ /HPF (Neg); MUCUS STRANDS NONE SEEN /LPF (Neg); RBC,URINE 0-2 /HPF (0-2); SQUAMOUS EPITHELIAL CELL,UR NONE SEEN /LPF (FEW); WBC,URINE TNTC /HPF (0-4)
[2017-09-23] MEDS ORDERED: potassium Cl 40MEQ/250ML bag 250 ML IV ONE (03:49)
[2017-09-23 05:00] VITALS: BP 104/54
[2017-09-23] MEDS: K and/or MAG REPLACEMENT MC SCH (08:00)
[2017-09-23 10:00] VITALS: BP 124/60
[2017-09-23] MEDS: pantoprazole 40mg Tablet.DR PO SCH (10:44)
[2017-09-23] MEDS: sertraline 50mg tablet PO SCH (10:44)
[2017-09-23 11:39] LABS: BASOPHILS % (AUTO) 0 % (0-1); EOSINOPHILS # (AUTO) 0.1 X10'3 (0-0.9); EOSINOPHILS % (AUTO) 1.3 % (0-6); HEMATOCRIT 34.1 % (35.0-45.0); HEMOGLOBIN 11.5 g/dl (12.0-16.0); LYMPHOCYTES # (AUTO) 1.4 X10'3 (1.1-4.8); LYMPHOCYTES % (AUTO) 26.9 % (21-51); MEAN CORPUSCULAR HEMOGLOBIN 32.5 PG (27.0-31.0); MEAN CORPUSCULAR HGB CONC 33.7 % (33.0-36.5); MEAN CORPUSCULAR VOLUME 96.6 FL (78-98); MEAN PLATELET VOLUME 7.8 FL (7.4-10.4); MONOCYTES # (AUTO) 0.4 X10'3 (0-0.9); MONOCYTES % (AUTO) 6.7 % (2-12); NEUTROPHILS # (AUTO) 3.4 X10'3 (1.8-7.7); NEUTROPHILS % (AUTO) 65.1 % (42-75); PLATELET COUNT 233 X10'3 (140-440); RED BLOOD COUNT 3.53 X10'6 (4.20-5.60); RED CELL DISTRIBUTION WIDTH 13.7 % (11.5-14.5); WHITE BLOOD COUNT 5.3 X10'3 (4.5-11.0)
[2017-09-23 11:55] LABS: ALANINE AMINOTRANSFERASE 31 U/L (12-78); ALBUMIN 3.4 G/DL (3.4-5.0); ALKALINE PHOSPHATASE 80 IU/L (46-116); ANION GAP 8 (8-16); ASPARTATE AMINO TRANSFERASE 18 U/L (10-37); BILIRUBIN,TOTAL 0.4 MG/DL (0.1-1.0); BLOOD UREA NITROGEN 14 MG/DL (7-18); BUN/CREATININE RATIO 11.7 (6.6-38.0); CALCIUM 8.6 MG/DL (8.5-10.1); CHLORIDE 108 MMOL/L (99-107); GLUCOSE 83 MG/DL (70-104); MAGNESIUM 1.8 MG/DL (1.5-2.4); POTASSIUM 3.6 MMOL/L (3.5-5.1); SODIUM 143 MMOL/L (135-145); TOTAL CARBON DIOXIDE 27.2 MMOL/L (24-32); TOTAL PROTEIN 6.7 G/DL (6.4-8.2); eGFR 43 ML/MIN
[2017-09-23] MEDS: CefTRIAXone 2gm/D5W 50ml 50 ML IV SCH (12:53)
[2017-09-23] MEDS: normal saline 1000ml 1,000 ML IV SCH (14:42)
[2017-09-23] MEDS: ondansetron/PF 4mg/2ml inj IV PRN ×2 (16:42→23:05)
[2017-09-23 18:00] VITALS: BP 105/41
[2017-09-23] MEDS: nystatin 15 GM powder TP SCH (19:15)
[2017-09-23] MEDS: HYDROcodone/acetaminophen 5mg/325mg tablet PO PRN ×2 (19:16→23:06)
[2017-09-23] MEDS ORDERED: pneumococcal 23-VAL P-sac vacc 25 mcg/0.5ml vial IMVAC ONE (19:40)
[2017-09-23 22:00] VITALS: BP 125/63
[2017-09-24] MEDS: normal saline 1000ml 1,000 ML IV SCH ×2 (00:39→19:56)
[2017-09-24] MEDS: zolpidem 5mg tablet PO PRN ×2 (00:47→23:31)
[2017-09-24] MEDS: ondansetron/PF 4mg/2ml inj IV PRN ×3 (05:19→19:56)
[2017-09-24] MEDS: HYDROcodone/acetaminophen 5mg/325mg tablet PO PRN ×4 (05:19→18:31)
[2017-09-24 06:00] VITALS: BP 138/72
[2017-09-24 06:24] LABS: BASOPHILS % (AUTO) 0.3 % (0-1); EOSINOPHILS # (AUTO) 0.1 X10'3 (0-0.9); EOSINOPHILS % (AUTO) 2.4 % (0-6); HEMOGLOBIN 10.2 g/dl (12.0-16.0); LYMPHOCYTES # (AUTO) 1.2 X10'3 (1.1-4.8); LYMPHOCYTES % (AUTO) 35.6 % (21-51); MEAN CORPUSCULAR HEMOGLOBIN 32.4 PG (27.0-31.0); MEAN CORPUSCULAR VOLUME 95.2 FL (78-98); MEAN PLATELET VOLUME 7.6 FL (7.4-10.4); MONOCYTES # (AUTO) 0.3 X10'3 (0-0.9); NEUTROPHILS # (AUTO) 1.8 X10'3 (1.8-7.7); NEUTROPHILS % (AUTO) 53.7 % (42-75); PLATELET COUNT 182 X10'3 (140-440); RED BLOOD COUNT 3.15 X10'6 (4.20-5.60); RED CELL DISTRIBUTION WIDTH 13.5 % (11.5-14.5); WHITE BLOOD COUNT 3.4 X10'3 (4.5-11.0)
[2017-09-24 06:36] LABS: ALANINE AMINOTRANSFERASE 32 U/L (12-78); ALKALINE PHOSPHATASE 69 IU/L (46-116); ANION GAP 9 (8-16); ASPARTATE AMINO TRANSFERASE 15 U/L (10-37); BILIRUBIN,TOTAL 0.3 MG/DL (0.1-1.0); CALCIUM 8.6 MG/DL (8.5-10.1); CHLORIDE 109 MMOL/L (99-107); CREATININE 0.97 MG/DL (0.40-0.90); GLUCOSE 82 MG/DL (70-104); MAGNESIUM 1.7 MG/DL (1.5-2.4); POTASSIUM 3.5 MMOL/L (3.5-5.1); SODIUM 142 MMOL/L (135-145); TOTAL CARBON DIOXIDE 23.8 MMOL/L (24-32); eGFR 55 ML/MIN
[2017-09-24 07:10] LABS: BLOOD UREA NITROGEN 14 MG/DL (7-18); BUN/CREATININE RATIO 14.4 (6.6-38.0)
[2017-09-24] MEDS ORDERED: pantoprazole 40mg Tablet.DR PO SCH (07:30)
[2017-09-24] MEDS: nystatin 15 GM powder TP SCH ×2 (08:00→20:00)
[2017-09-24] MEDS: sertraline 50mg tablet PO SCH (08:00)
[2017-09-24] MEDS: K and/or MAG REPLACEMENT MC SCH (08:00)
[2017-09-24] MEDS ORDERED: sertraline 25mg tablet PO SCH (08:00)
[2017-09-24] MEDS: pantoprazole 40mg Tablet.DR PO SCH (09:18)
[2017-09-24] MEDS: CefTRIAXone 2gm/D5W 50ml 50 ML IV SCH (09:19)
[2017-09-24 10:00] VITALS: BP 137/53
[2017-09-24 18:00] VITALS: BP 149/79
[2017-09-24 22:00] VITALS: BP 167/67
[2017-09-25] MEDS: HYDROcodone/acetaminophen 5mg/325mg tablet PO PRN (04:58)
[2017-09-25 06:00] VITALS: BP 163/62
[2017-09-25 06:10] LABS: ALANINE AMINOTRANSFERASE 24 U/L (12-78); ALBUMIN 2.9 G/DL (3.4-5.0); ALKALINE PHOSPHATASE 67 IU/L (46-116); ANION GAP 10 (8-16); ASPARTATE AMINO TRANSFERASE 14 U/L (10-37); BILIRUBIN,TOTAL 0.3 MG/DL (0.1-1.0); BLOOD UREA NITROGEN 11 MG/DL (7-18); BUN/CREATININE RATIO 11.8 (6.6-38.0); CALCIUM 8.2 MG/DL (8.5-10.1); CHLORIDE 110 MMOL/L (99-107); CREATININE 0.93 MG/DL (0.40-0.90); GLUCOSE 88 MG/DL (70-104); MAGNESIUM 1.6 MG/DL (1.5-2.4); POTASSIUM 3.5 MMOL/L (3.5-5.1); SODIUM 144 MMOL/L (135-145); TOTAL CARBON DIOXIDE 24.1 MMOL/L (24-32); TOTAL PROTEIN 5.8 G/DL (6.4-8.2); eGFR 58 ML/MIN
[2017-09-25] MEDS: K and/or MAG REPLACEMENT MC SCH (07:29)
[2017-09-25] MEDS: nystatin 15 GM powder TP SCH (07:29)
[2017-09-25] MEDS: sertraline 50mg tablet PO SCH (07:34)
[2017-09-25] MEDS: pantoprazole 40mg Tablet.DR PO SCH (07:34)
[2017-09-25] MEDS: CefTRIAXone 2gm/D5W 50ml 50 ML IV SCH (07:34)
[2017-09-25 10:00] VITALS: BP 170/73
== END 2017-09-25 17:00 | DRG 690 ==
LOC: ER 15:28 → ED HOLD 22:02 → OBSVTOIN 22:03 → ORTHO 4S 09-23 01:18
PROVIDERS: ADMIT Emergency Medicine; ATTEND Internal Medicine
DX: N39.0 Urinary tract infection, site not specified (principal); G89.4 Chronic pain syndrome; E86.0 Dehydration; I10 Essential (primary) hypertension; M54.9 Dorsalgia, unspecified; R19.7 Diarrhea, unspecified; B96.20 Unspecified Escherichia coli [E. coli] as the cause of diseases classified elsewhere; N28.9 Disorder of kidney and ureter, unspecified; Z60.2 Problems related to living alone; S82.401D Unspecified fracture of shaft of right fibula, subsequent encounter for closed fracture with routine healing; Z90.49 Acquired absence of other specified parts of digestive tract; Z90.5 Acquired absence of kidney; Z90.710 Acquired absence of both cervix and uterus; Z28.21 Immunization not carried out because of patient refusal; Z88.5 Allergy status to narcotic agent; Z85.038 Personal history of other malignant neoplasm of large intestine; Z85.528 Personal history of other malignant neoplasm of kidney; Z82.49 Family history of ischemic heart disease and other diseases of the circulatory system
CPT/HCPCS: 36415; 74176; 76775; 80053; 81001; 83605; 83690; 83735; 85025; 85610; 87070; 87077; 87088; 87186; 96361; 96374; 96375; 96376; 97110; 97116; 97161; 97530; 99285; G0378; J0696; J2270; J2405; J3010; J3480; J7030

== ENCOUNTER 2017-10-12 11:08 | Outpatient (CLI) | payer MEDICARE, OTHER ==
[~2017-10-12 11:08] MED LIST changes: -BIMA2.5D OP; -DORZ10DR18 RIGHTEYE; +METO-292 PO; +NYSPWD TP; +PANT-47 PO; +PROC25SU31 RC; +SERT25TA PO; +ZOLP10TA5 PO
== END 2017-10-12 12:04 | disposition home or self-care (01) ==
LOC: ORTHO 11:08
PROVIDERS: ATTEND Nurse Practitioner Family
DX: S82.841D Displaced bimalleolar fracture of right lower leg, subsequent encounter for closed fracture with routine healing (principal); S82.401D Unspecified fracture of shaft of right fibula, subsequent encounter for closed fracture with routine healing; I10 Essential (primary) hypertension; Z60.2 Problems related to living alone; Z88.5 Allergy status to narcotic agent; Z79.899 Other long term (current) drug therapy; Z72.89 Other problems related to lifestyle; X58.XXXD Exposure to other specified factors, subsequent encounter
CPT/HCPCS: 73560; 73610; 99213

== ENCOUNTER 2017-11-28 14:01 | Outpatient (CLI) | payer MEDICARE, OTHER ==
[2017-11-28 13:57] VITALS: BP 141/69
== END 2017-11-28 15:15 | disposition home or self-care (01) ==
LOC: ORTHO 14:01
PROVIDERS: ATTEND Nurse Practitioner Family
DX: S82.831G Other fracture of upper and lower end of right fibula, subsequent encounter for closed fracture with delayed healing (principal); S82.841G Displaced bimalleolar fracture of right lower leg, subsequent encounter for closed fracture with delayed healing; M25.461 Effusion, right knee; I10 Essential (primary) hypertension; F10.10 Alcohol abuse, uncomplicated; Z96.651 Presence of right artificial knee joint; Z60.2 Problems related to living alone; Z88.5 Allergy status to narcotic agent; Z79.82 Long term (current) use of aspirin; Z85.528 Personal history of other malignant neoplasm of kidney; Z85.038 Personal history of other malignant neoplasm of large intestine; W19.XXXD Unspecified fall, subsequent encounter
CPT/HCPCS: 73560; 73610; 99213

== ENCOUNTER 2018-01-17 12:02 | Outpatient (CLI) | payer MEDICARE, OTHER ==
[2018-01-17 12:04] VITALS: BP 166/82
== END 2018-01-17 13:14 | disposition home or self-care (01) ==
LOC: ORTHO 12:02
PROVIDERS: ATTEND Nurse Practitioner Family
DX: S82.831D Other fracture of upper and lower end of right fibula, subsequent encounter for closed fracture with routine healing (principal); S82.841D Displaced bimalleolar fracture of right lower leg, subsequent encounter for closed fracture with routine healing; M16.11 Unilateral primary osteoarthritis, right hip; M85.88 Other specified disorders of bone density and structure, other site; I10 Essential (primary) hypertension; M77.31 Calcaneal spur, right foot; Z88.5 Allergy status to narcotic agent; Z60.2 Problems related to living alone; Z79.899 Other long term (current) drug therapy; Z85.038 Personal history of other malignant neoplasm of large intestine; Z85.528 Personal history of other malignant neoplasm of kidney; X58.XXXD Exposure to other specified factors, subsequent encounter
CPT/HCPCS: 73502; 73564; 73610

== ENCOUNTER 2018-02-24 08:22 | Emergency (ER) | payer MEDICARE, OTHER, MEDICAID ==
[~2018-02-24] VITALS: Ht 160 cm; Wt 83.6 kg
[2018-02-24] MEDS ORDERED: HYDROcodone/acetaminophen 10/325mg tab PO ONE (08:50)
[2018-02-24] MEDS ORDERED: LIDOcaine 5% patch TP ONE (09:55)
[2018-02-24 11:02] VITALS: BP 159/89
== END 2018-02-24 11:03 | disposition home or self-care (01) ==
LOC: ER 08:22
DX: M25.552 Pain in left hip (principal); I10 Essential (primary) hypertension; G89.29 Other chronic pain; M43.16 Spondylolisthesis, lumbar region; M51.36 Other intervertebral disc degeneration, lumbar region; Z90.49 Acquired absence of other specified parts of digestive tract; Z90.710 Acquired absence of both cervix and uterus; Z98.890 Other specified postprocedural states; Z60.2 Problems related to living alone; Z88.5 Allergy status to narcotic agent; Z79.899 Other long term (current) drug therapy
CPT/HCPCS: 72100; 73502; 99284

== ENCOUNTER 2018-05-03 04:16 | Inpatient (IN) | payer MEDICARE, OTHER, MEDICAID | END 2018-05-21 14:09 | LOC: PACU 05-04 09:30 → SUR 3N 05-15 11:37 → ER 04:16 → CICU 2S 05-04 14:44 → SUR 3N 05-14 10:42 → ED HOLD 10:21 → SUR 3N 11:54 | PROC: 0DN84ZZ Release Small Intestine, Percutaneous Endoscopic Approach (ICD-10-PCS; principal; 2018-05-04 10:41) | PROC: 5A1955Z Respiratory Ventilation, Greater than 96 Consecutive Hours (ICD-10-PCS; 2018-05-04 10:41) | DX: K56.609 Unspecified intestinal obstruction, unspecified as to partial versus complete obstruction (principal); J96.00 Acute respiratory failure, unspecified whether with hypoxia or hypercapnia; N17.9 Acute kidney failure, unspecified; K29.00 Acute gastritis without bleeding; I10 Essential (primary) hypertension; R53.1 Weakness; E87.6 Hypokalemia; E87.5 Hyperkalemia; Z85.038 Personal history of other malignant neoplasm of large intestine; Z90.49 Acquired absence of other specified parts of digestive tract; K44.9 Diaphragmatic hernia without obstruction or gangrene ==

== ENCOUNTER 2019-02-21 20:44 | Emergency (ER) | payer MEDICARE, MEDICAID ==
[~2019-02-21] VITALS: Ht 162.6 cm; Wt 77.3 kg
[~2019-02-21 20:44] MED LIST changes: +BIMA2.5D OP; +DORZ10DR10 RIGHTEYE; +LISI40TA4 PO; -METO-292 PO; +METO25TA6 PO; -NYSPWD TP; -PANT-47 PO; -PROC25SU31 RC; -SERT25TA PO; +ZOLP10TA PO; -ZOLP10TA5 PO
[2019-02-21 20:51] VITALS: BP 146/69
[2019-02-21] MEDS ORDERED: TETanus/Pertussis (Acell)/Diphther VAC/PF (Tdap-Adult) 0.5ml syringe IMVAC ONE (21:35)
[2019-02-21] MEDS ORDERED: LIDOcaine 1% w/epiNEPHrine 1:200,000 30ml vial IM ONE (21:35)
[2019-02-21] MEDS ORDERED: ibuprofen tablet 400 MG TABLET PO ONE (22:00)
== END 2019-02-21 22:50 | disposition home or self-care (01) ==
LOC: ER 20:44
DX: S91.312A Laceration without foreign body, left foot, initial encounter (principal); I10 Essential (primary) hypertension; G89.29 Other chronic pain; Z90.49 Acquired absence of other specified parts of digestive tract; Z90.710 Acquired absence of both cervix and uterus; Z98.890 Other specified postprocedural states; Z60.2 Problems related to living alone; Z88.5 Allergy status to narcotic agent; Z79.899 Other long term (current) drug therapy; W26.0XXA Contact with knife, initial encounter; Y93.89 Activity, other specified; Y92.89 Other specified places as the place of occurrence of the external cause; Y99.8 Other external cause status
CPT/HCPCS: 12002; 90471; 99284

== ENCOUNTER 2020-07-30 17:38 | Emergency (ER) | payer BC, MEDICAID ==
[~2020-07-30] VITALS: Ht 165.1 cm; Wt 73.6 kg
[~2020-07-30 17:38] MED LIST changes: -LISI40TA4 PO; +LOP25T PO; -METO25TA6 PO; -ZOLP10TA PO
[2020-07-30] MEDS ORDERED: furosemide 10 MG/1 ML 10ml inj IV ONE (18:30)
[2020-07-30] MEDS ORDERED: aspirin 81mg tab.chew PO ONE (18:30)
[2020-07-30] MEDS ORDERED: diltiazem 5mg/ml 5ml inj. IV ONE (18:30)
[2020-07-30 19:12] LABS: BASOPHILS % (AUTO) 1.1 % (0-1); EOSINOPHILS % (AUTO) 1.6 % (0-6); HEMATOCRIT 37.7 % (35.0-45.0); HEMOGLOBIN 12.5 g/dl (12.0-16.0); LYMPHOCYTES % (AUTO) 37.2 % (21-51); MEAN CORPUSCULAR HEMOGLOBIN 33.4 PG (27.0-31.0); MEAN CORPUSCULAR VOLUME 101.1 FL (78-98); MEAN PLATELET VOLUME 8.1 FL (7.4-10.4); MONOCYTES # (AUTO) 0.4 X10'3 (0-0.9); MONOCYTES % (AUTO) 14.7 % (2-12); NEUTROPHILS # (AUTO) 1.2 X10'3 (1.8-7.7); NEUTROPHILS % (AUTO) 45.4 % (42-75); PLATELET COUNT 224 X10'3 (140-440); RED BLOOD COUNT 3.73 X10'6 (4.20-5.60); RED CELL DISTRIBUTION WIDTH 14.9 % (11.5-14.5); WHITE BLOOD COUNT 2.6 X10'3 (4.5-11.0)
[2020-07-30 19:19] LABS: ALANINE AMINOTRANSFERASE 16 U/L (12-78); ALBUMIN 3.6 G/DL (3.4-5.0); ALBUMIN/GLOBULIN RATIO 1.2 (1.1-1.5); ALKALINE PHOSPHATASE 48 IU/L (46-116); ANION GAP 12 (8-16); ASPARTATE AMINO TRANSFERASE 14 U/L (10-37); BILIRUBIN,TOTAL 0.5 MG/DL (0.1-1.0); BLOOD UREA NITROGEN 12 MG/DL (7-18); BUN/CREATININE RATIO 9.1 (6.6-38.0); CALCIUM 8.8 MG/DL (8.5-10.1); CHLORIDE 103 MMOL/L (99-107); CREATININE 1.32 MG/DL (0.40-0.90); GLUCOSE 84 MG/DL (70-104); POTASSIUM 3.2 MMOL/L (3.5-5.1); SODIUM 139 MMOL/L (135-145); TOTAL CARBON DIOXIDE 23.8 MMOL/L (24-32); TOTAL PROTEIN 6.5 G/DL (6.4-8.2); eGFR 38 ML/MIN
[2020-07-30 19:53] LABS: TOTAL CELLS COUNTED 100
[2020-07-30 19:54] LABS: LARGE PLATELETS FEW; PLATELET ESTIMATE NORMAL
[2020-07-30] MEDS ORDERED: morphine 4 MG/ML inj SYRINge IV ONE (20:05)
--- NOTE | 2020-07-30 21:14 | NUR ---
Patient and her friend are concerned about patient taking Morphine as patient lives alone and has stairs. NATHEN Mandujano informed, VO for Alma instead.
[2020-07-30] MEDS ORDERED: FURO-150 PO (21:15)
[2020-07-30] MEDS ORDERED: POTA10TA19 PO (21:15)
[2020-07-30] MEDS ORDERED: HYDROcodone/acetaminophen 5mg/325mg tablet PO ONE (21:15)
[2020-07-30 21:16] VITALS: BP 153/96
== END 2020-07-30 21:43 | disposition home or self-care (01) ==
LOC: ER 17:38
DX: I13.0 Hypertensive heart and chronic kidney disease with heart failure and stage 1 through stage 4 chronic kidney disease, or unspecified chronic kidney disease (principal); I50.33 Acute on chronic diastolic (congestive) heart failure; N18.9 Chronic kidney disease, unspecified; I48.91 Unspecified atrial fibrillation; G89.29 Other chronic pain; Z90.49 Acquired absence of other specified parts of digestive tract; Z90.710 Acquired absence of both cervix and uterus; Z98.890 Other specified postprocedural states; Z72.89 Other problems related to lifestyle; Z60.2 Problems related to living alone; Z88.5 Allergy status to narcotic agent; Z79.899 Other long term (current) drug therapy
CPT/HCPCS: 71045; 80053; 83880; 84484; 85007; 85025; 85610; 93005; 93970; 96374; 96375; 99285; J1940; J3490

== ENCOUNTER 2020-08-30 20:42 | Emergency (ER) | payer BC, MEDICAID ==
[~2020-08-30] VITALS: Ht 165.1 cm; Wt 73.2 kg
[~2020-08-30 20:42] MED LIST changes: +POTA10TA19 PO
[2020-08-30] MEDS ORDERED: ketorolac tromethamine 15mg/ml inj. IM ONE (22:05)
[2020-08-30 22:51] LABS: BASOPHILS % (AUTO) 0.5 % (0-1); EOSINOPHILS # (AUTO) 0.1 X10'3 (0-0.9); EOSINOPHILS % (AUTO) 1.4 % (0-6); HEMATOCRIT 39.4 % (35.0-45.0); HEMOGLOBIN 12.9 g/dl (12.0-16.0); LYMPHOCYTES # (AUTO) 0.9 X10'3 (1.1-4.8); LYMPHOCYTES % (AUTO) 22.1 % (21-51); MEAN CORPUSCULAR HEMOGLOBIN 31.8 PG (27.0-31.0); MEAN CORPUSCULAR HGB CONC 32.6 g/dL (33.0-36.5); MEAN CORPUSCULAR VOLUME 97.7 FL (78-98); MEAN PLATELET VOLUME 7.6 FL (7.4-10.4); MONOCYTES # (AUTO) 0.4 X10'3 (0-0.9); MONOCYTES % (AUTO) 10.8 % (2-12); NEUTROPHILS # (AUTO) 2.6 X10'3 (1.8-7.7); NEUTROPHILS % (AUTO) 65.2 % (42-75); PLATELET COUNT 220 X10'3 (140-440); RED BLOOD COUNT 4.04 X10'6 (4.20-5.60); RED CELL DISTRIBUTION WIDTH 13.6 % (11.5-14.5)
[2020-08-30 23:09] LABS: ALANINE AMINOTRANSFERASE 12 U/L (12-78); ALBUMIN 3.5 G/DL (3.4-5.0); ALBUMIN/GLOBULIN RATIO 1.1 (1.1-1.5); ALKALINE PHOSPHATASE 53 IU/L (46-116); ANION GAP 12 (8-16); ASPARTATE AMINO TRANSFERASE 11 U/L (10-37); BILIRUBIN,TOTAL 0.7 MG/DL (0.1-1.0); BLOOD UREA NITROGEN 12 MG/DL (7-18); C-REACTIVE PROTEIN 1.57 MG/DL (0.0-0.5); CALCIUM 9.3 MG/DL (8.5-10.1); CHLORIDE 104 MMOL/L (99-107); CREATININE 1.33 MG/DL (0.40-0.90); GLUCOSE 75 MG/DL (70-104); POTASSIUM 3.8 MMOL/L (3.5-5.1); SODIUM 141 MMOL/L (135-145); TOTAL CARBON DIOXIDE 25.3 MMOL/L (24-32); TOTAL PROTEIN 6.8 G/DL (6.4-8.2); eGFR 38 ML/MIN
--- NOTE | 2020-08-30 23:20 | NUR ---
pt given extra blankets. vascular at bedside
[2020-08-30] MEDS ORDERED: CEPH-585 PO (23:50)
[2020-08-30] MEDS ORDERED: cephalexin 250mg capsule PO ONE (23:50)
[2020-08-30] MEDS ORDERED: morphine 4 MG/ML inj SYRINge IM ONE (23:50)
[2020-08-31 00:17] VITALS: BP 170/86
== END 2020-08-31 00:16 | disposition home or self-care (01) ==
LOC: ER 20:43
DX: L03.115 Cellulitis of right lower limb (principal); I48.91 Unspecified atrial fibrillation; I10 Essential (primary) hypertension; G89.29 Other chronic pain; Z85.038 Personal history of other malignant neoplasm of large intestine; Z72.89 Other problems related to lifestyle; Z90.49 Acquired absence of other specified parts of digestive tract; Z90.5 Acquired absence of kidney; Z90.710 Acquired absence of both cervix and uterus; Z98.891 History of uterine scar from previous surgery; Z79.899 Other long term (current) drug therapy
CPT/HCPCS: 36415; 80053; 83605; 85025; 85651; 86140; 87040; 93971; 96372; 99284; J1885; J2270